=== PATIENT | female | born 1955 | race Caucasian/White ===

== ENCOUNTER 2021-08-15 12:25 | Emergency (ER) | payer OTHER ==
--- NOTE | 2021-08-15 14:03 | ED Physician Documentation ---
PD HPI HEAD INJURY - Stated complaint Stated Complaint: HEAD PAIN - Chief complaint Chief Complaint: Trauma Hd/Nk - History obtained from History obtained from: Patient - History of Present Illness Mechanism of head injury: Fell Where head injury occurred: Home (She states she slipped on a wet board and fell backwards striking the back of her head this morning at 10 AM. No loss of consciousness but felt confused off balanced and continued headache for 1 to 2 hours. Also pain in the right knee.) Timing - onset: How many hours ago (3), Today Location of injury: Back Associated symptoms: AMS (feels slow processing thoughts and conversation for the first 20-30 minutes. Improved now.), Nausea / vomiting. No: LOC, Neck pain, Paresthesias Symptoms worsen with: Palpation Contributing factors: No: Anticoagulated, Intoxicated Similar symptoms before: Has not had sx before Recently seen: Not recently seen Review of Systems Constitutional: denies: Fever, Chills Eyes: reports: Other (she viewed that her right pupil appeared more dilated than the left.). denies: Loss of vision, Decreased vision Nose: denies: Rhinorrhea / runny nose, Congestion Throat: denies: Sore throat Respiratory: denies: Cough GI: reports: Nausea. denies: Abdominal Pain, Vomiting, Diarrhea PD PAST MEDICAL HISTORY - Past Medical History Cardiovascular: None Respiratory: None Neuro: None Endocrine/Autoimmune: None - Allergies Allergies/Adverse Reactions: Allergies Allergy/AdvReac Type Severity Reaction Status Date / Time No Known Drug Allergies Allergy Verified 08/15/21 12:52 PD ED PE NORMAL - Vitals Vital signs reviewed: Yes - General General: Alert and oriented X 3, Well developed/nourished - HEENT HEENT: PERRL, EOMI, Other (Tender in the occiput area with some mild local swelling.) - Neck Neck: Supple, no meningeal sign, No bony TTP, Other (Mild muscular tenderness in the right paracervical area. No midline or bony tenderness.) - Cardiac Cardiac: RRR, No murmur - Respiratory Respiratory: Clear bilaterally - Abdomen Abdomen: Soft, Non tender - Derm Derm: Normal color, Warm and dry - Extremities Extremities: Other (right knee with some tenderness medial anterior. No laxity nor pain with cruciate/collateral stress testing. ) - Neuro Neuro: No motor deficit, No sensory deficit Results - Vitals Vitals: Vital Signs - 24 hr 08/15/21 15:52 Heart Rate 75 Respiratory 18 Rate Blood Pressure 167/91 H O2 Saturation 98 Oxygen O2 Source Room air - Rads (name of study) right knee Radiology: Prelim report reviewed (some arthritis, no fractues/acute process), See rad report head CT Radiology: Prelim report reviewed (no acute process), See rad report PD MEDICAL DECISION MAKING - ED course Complexity details: reviewed results, considered differential, d/w patient Departure - Departure Disposition: 01 Home, Self Care Clinical Impression: Mild concussion Qualifiers: Encounter type: initial encounter Loss of consciousness presence/duration: without LOC Qualified Code(s): S06.0X0A - Concussion without loss of consciousness, initial encounter Knee pain, acute Qualifiers: Laterality: right Qualified Code(s): M25.561 - Pain in right knee Condition: Stable Record reviewed to determine appropriate education?: Yes Instructions: ED Meniscal Injury Knee Poss, ED Concussion Follow-Up: Tony Roblero DO [Primary Care Provider] - Comments: Your head CT does not show any signs of bleeding or localized swelling. Your symptoms would certainly correlate with mild concussion. Light physical and cognitive activity for the next day or 2 until feeling better. Tylenol or ibuprofen if needed for pains. I would anticipate improvement over the next few days. Your knee x-ray shows a little arthritis in the knee but your symptoms are more suggestive of some inflammation or injury of the cartilage (meniscus). Use the hinged knee brace when up and around to support the knee and minimize range of motion for the next 1-2 weeks or so. You can use ice elevate and rest the knee as needed for swelling. Again Tylenol or ibuprofen if needed for pains. Follow-up with your primary care if not improved well over the next 1 to 2 weeks with the above interventions. Discharge Date/Time: 08/15/21 16:02
--- NOTE | 2021-08-15 15:12 | CT Report ---
PROCEDURE: HEAD WO INDICATIONS: Trauma, fall, concussion symptoms TECHNIQUE: Noncontrast 4.5 mm thick angled axial sections acquired from the foramen magnum to the vertex. For r adiation dose reduction, the following was used: automated exposure control, adjustment of mA and/or kV according to patient size. COMPARISON: None. FINDINGS: Image quality: Excellent. CSF spaces: Basal cisterns are patent. No extra-axial fluid collections. Ventricles are normal in size and shape. Brain: No midline shift. No intracranial masses or hemorrhage. Gonzales-white matter interface is norm al. Skull and face: Calvarium and visualized facial bones are intact, without suspicious lesions. Sinuses: Visualized sinuses and mastoids are clear. IMPRESSION: No acute intracranial abnormality. Reviewed by: Minh Mauro MD on 08/15/2021 3:11 PM PDT Approved by: Minh Mauro MD on 08/15/2021 3:11 PM PDT Station ID: [id number]
--- NOTE | 2021-08-15 15:25 | XRAY Report ---
PROCEDURE: Knee 3 View RT INDICATIONS: right knee pain and swelling after fall TECHNIQUE: 3 views of the right knee were acquired. COMPARISON: None. FINDINGS: Bones: No fractures or dislocations. There is tricompartmental mild osteophytosis, most prominent wi thin the lateral compartment. Mild joint space narrowing also demonstrated in the lateral compartment with mild subchondral sclerosis. No suspicious bony lesions. Soft tissues: There is a small joint effusion. No suspicious soft tissue calcifications. IMPRESSION: 1. No fracture or dislocation. 2. Mild osteoarthritic changes most prominent within the lateral compartment. 3. Small joint effusion. Reviewed by: Cristian Mix MD on 08/15/2021 3:23 PM PDT Approved by: Cristian Mix MD on 08/15/2021 3:23 PM PDT Station ID: [id number]
[2021-08-15 15:52] VITALS: BP 167/91
== END 2021-08-15 16:02 | disposition home or self-care (01) ==
LOC: ED 12:25
DX: S06.0X0A Concussion without loss of consciousness, initial encounter (principal); M25.561 Pain in right knee; W01.0XXA Fall on same level from slipping, tripping and stumbling without subsequent striking against object, initial encounter; Y92.009 Unspecified place in unspecified non-institutional (private) residence as the place of occurrence of the external cause
CPT/HCPCS: 99282; 99284

== ENCOUNTER 2022-10-09 08:39 | Emergency (ER) | payer MEDICARE, BC ==
--- NOTE | 2022-10-09 09:14 | ED Physician Documentation ---
PD HPI BACK PAIN - Stated complaint Stated Complaint: LT SIDE PX - Chief complaint Chief Complaint: Abd Pain - History obtained from History obtained from: Patient - History of Present Illness Timing - onset: How many days ago (few) Timing - duration: Days (few) Timing - details: Gradual onset, Still present Location: Mid, Lower, Left (radiating to left lower abdomen.) Quality: Pain, Aching Associated symptoms: No: Fever, Weakness, Numbness Worsened by: Movement, Twisting. No: Palpation Contributing factors: No: Lifting, Twisting, Trauma Similar symptoms before: Has not had sx before Recently seen: Not recently seen Review of Systems Constitutional: denies: Fever, Chills, Myalgias Nose: denies: Rhinorrhea / runny nose, Congestion Throat: denies: Sore throat Respiratory: denies: Cough GI: reports: Abdominal Pain. denies: Nausea, Vomiting, Constipation, Diarrhea Skin: denies: Rash, Lesions Musculoskeletal: reports: Back pain (left flank to lower back). denies: Extremity swelling Neurologic: denies: Focal weakness, Numbness PD PAST MEDICAL HISTORY - Past Medical History Cardiovascular: None Respiratory: None Neuro: None Endocrine/Autoimmune: None - Present Medications Home Medications: Ambulatory Orders Medication Instructions Recorded Confirmed hydrOXYzine PAMOATE [Vistaril] 25 mg PO Q6H PRN #100 cap 10/09/22 - Allergies Allergies/Adverse Reactions: Allergies Allergy/AdvReac Type Severity Reaction Status Date / Time aspirin Allergy Rash Verified 10/09/22 09:04 methylprednisolone Allergy Hallucinati Verified 10/09/22 09:05 [From Medrol] ons Penicillins Allergy Hives Verified 10/09/22 09:05 Sulfa (Sulfonamide Allergy Hives Verified 10/09/22 09:04 Antibiotics) sulfite Allergy Anaphylaxis Verified 10/09/22 09:05 - Social History Does the pt smoke?: No Smoking Status: Never smoker PD ED PE NORMAL - Vitals Vital signs reviewed: Yes - General General: Alert and oriented X 3, Well developed/nourished, Other (moderately uncomfortable appearing, worse with torsion rom of the back. ) - Neck Neck: Supple, no meningeal sign, No adenopathy - Cardiac Cardiac: RRR, No murmur - Respiratory Respiratory: Clear bilaterally - Abdomen Abdomen: Normal bowel sounds, Soft, Non distended, No organomegaly, Other (tender left mid abdomen laterally. Some tender left flank to percussion, not much to palpation. No rash nor sores. ) - Back Back: No spinal TTP - Derm Derm: Normal color, Warm and dry, No rash - Neuro Neuro: Alert and oriented X 3, No motor deficit, No sensory deficit, Normal speech Results - Vitals Vitals: Vital Signs - 24 hr 10/09/22 10/09/22 09:01 11:50 Temperature 36.3 C L Heart Rate 85 88 Respiratory 16 18 Rate Blood Pressure 170/77 H 146/91 H O2 Saturation 95 98 Oxygen O2 Source Room air - Labs Labs: Laboratory Tests 10/09/22 10/09/22 10/09/22 09:16 09:51 09:51 WBC 7.4 RBC 5.08 Hgb 14.2 Hct 45.3 MCV 89.2 MCH 28.0 MCHC 31.3 L RDW 12.2 Plt Count 282 MPV 11.2 H Neut # (Auto) 4.3 Lymph # (Auto) 2.3 [place] # (Auto) 0.6 Eos # (Auto) 0.1 Baso # (Auto) 0.1 Absolute Nucleated RBC 0.00 Nucleated RBC % 0.0 Sodium 138 Potassium 4.2 Chloride 103 Carbon Dioxide 26 Anion Gap 9.0 BUN 32 H Creatinine 0.9 Estimated GFR (MDRD) 63 L Glucose 108 H Calcium 9.6 Total Bilirubin 0.9 AST 18 ALT 28 Alkaline Phosphatase 77 Total Protein 7.1 Albumin 3.8 Globulin 3.3 Albumin/Globulin Ratio 1.2 Lipase 37 Urine Color YELLOW Urine Clarity CLEAR Urine pH 6.0 Ur Specific [place] 1.015 Urine Protein NEGATIVE Urine Glucose (UA) NEGATIVE Urine Ketones NEGATIVE Urine Occult Blood NEGATIVE Urine Nitrite NEGATIVE Urine Bilirubin NEGATIVE Urine Urobilinogen 0.2 (NORMAL) Ur Leukocyte Esterase NEGATIVE Ur Microscopic Review NOT INDICATED Urine Culture Comments NOT INDICATED - Rads (name of study) abd/pelvic cT Radiology: Prelim report reviewed (no ureteral stones nor hydronephrosis. normal appendix. ), EMP read contemporaneously (no abnormal to explain the pain. ), See rad report PD MEDICAL DECISION MAKING - ED course Complexity details: reviewed results, re-evaluated patient (labbs and CT normal. presume then myofascial/muscular pain or intestinal such as iBS. ), considered differential, d/w patient Departure - Departure Disposition: 01 Home, Self Care Clinical Impression: Left sided abdominal pain Condition: Stable Record reviewed to determine appropriate education?: Yes Instructions: ED Abdominal Pain Female Non-Specific Abdominal Pain Follow-Up: Tony Roblero DO [Primary Care Provider] - Prescriptions: hydrOXYzine PAMOATE [Vistaril] 25 mg PO Q6H PRN #100 cap PRN Reason: Itching Comments: Your blood count and blood tests associated with liver and pancreas as well as electrolytes and kidney function are normal. Your urinalysis did not show any signs of infection. Your CT scan does not show a cause for the pain. With that results, considerations would then be things that would not show such as musculoskeletal pain. There could be some muscular pain causing this such as muscle strain. Along with that idea would go with the position allergy and pain with movement etc. Other consideration could be intestinal pain with some stretching or irritation of the intestines (irritable bowel). For that I would suggest mild stool softener such as senna or psyllium or such once or twice daily for the next week or 2. Use Tylenol if needed for pains 4 times daily. Add Vistaril if needed for itching related to medication. I did send a prescription for the Vistaril you have taken in the past to [facility] in [place]. Follow-up with your primary care and corrections caseworker as needed over the next several days to a week if not improving well. Consider physical modalities such as chiropractic or massage as well. Discharge Date/Time: 10/09/22 11:52
[2022-10-09 09:51] LABS: BILIRUBIN,URINE NEGATIVE (NEGATIVE); GLUCOSE, URINE (UA) NEGATIVE (NEGATIVE); KETONES,URINE (UA) NEGATIVE (NEGATIVE); LEUKOCYTE ESTERASE, URINE NEGATIVE (NEGATIVE); NITRITE,URINE NEGATIVE (NEGATIVE); OCCULT BLOOD,URINE NEGATIVE (NEGATIVE); PROTEIN,URINE NEGATIVE (NEGATIVE); UROBILINOGEN,URINE 0.2 (NORMAL) E.U./dL (NORMAL)
[2022-10-09 09:56] LABS: CLARITY,URINE CLEAR (CLEAR)
[2022-10-09 09:57] LABS: BASOPHILS # (AUTO) 0.1 10^3/uL (0.0-0.1); BASOPHILS % (AUTO) 0.8 %; EOSINOPHILS # (AUTO) 0.1 10^3/uL (0.0-0.7); EOSINOPHILS % (AUTO) 1.5 %; HCT - HEMATOCRIT 45.3 % (37.0-47.0); HGB - HEMOGLOBIN 14.2 g/dL (12.0-16.0); LYMPHOCYTES # (AUTO) 2.3 10^3/uL (1.5-3.5); LYMPHOCYTES % (AUTO) 30.8 %; MEAN CORPUSCULAR HGB CONC 31.3 g/dL (32.0-36.0); MEAN CORPUSCULAR VOLUME 89.2 fL (81.0-99.0); MEAN PLATELET VOLUME 11.2 fL (7.9-10.8); MONOCYTES # (AUTO) 0.6 10^3/uL (0.0-1.0); MONOCYTES % (AUTO) 8.4 %; NEUTROPHILS # (AUTO) 4.3 10^3/uL (1.5-6.6); NEUTROPHILS % (AUTO) 58.4 %; PLT - PLATELET COUNT 282 10^3/uL (130-450); RED BLOOD COUNT 5.08 10^6/uL (4.20-5.40); RED CELL DISTRIBUTION WIDTH 12.2 % (12.0-15.0); WHITE BLOOD COUNT 7.4 x10^3/uL (4.8-10.8)
[2022-10-09 10:09] LABS: ALBUMIN 3.8 g/dL (3.2-5.5); ALBUMIN/GLOBULIN RATIO 1.2 (1.0-2.2); BILIRUBIN,TOTAL 0.9 mg/dL (0.2-1.0); CALCIUM 9.6 mg/dL (8.5-10.3); CREATININE 0.9 mg/dL (0.4-1.0); POTASSIUM 4.2 mmol/L (3.5-5.0); TOTAL PROTEIN 7.1 g/dL (6.7-8.2)
--- NOTE | 2022-10-09 10:25 | CT Report ---
PROCEDURE: ABDOMEN/PELVIS WO INDICATIONS: left flank/abd pain for 4 days TECHNIQUE: Noncontrast 5 mm thick sections acquired from the diaphragms to the symphysis. 5 mm coronal and sagi ttal reformats were then performed. For radiation dose reduction, the following was used: automated exposure control, adjustment of mA and/or kV according to patient size. COMPARISON: None. FINDINGS: Image quality: Excellent. ABDOMEN: Lung bases: Lung bases are clear. Heart size is normal. Solid organs: Liver and spleen are normal in size. Gallbladder is contracted Pancreas is normal in contours. No adrenal nodules. Kidneys are normal in size, without hydronephrosis or nephrolithiasi s. Peritoneum and bowel: Unenhanced bowel loops demonstrate normal wall thickness and caliber. Normal appendix. No free fluid or air. Nodes and vessels: No retroperitoneal or mesenteric adenopathy by size criteria. Aorta and inferior vena cava are normal in caliber. Miscellaneous: No ventral hernias. PELVIS: Genitourinary: Bladder wall thickness is normal. Miscellaneous: No inguinal hernias or adenopathy. Bones: No suspicious bony lesions. No vertebral body compression fractures. IMPRESSION: 1. No evidence of urinary tract calcification, nor obstruction. 2. Normal appendix. Reviewed by: Sophie Horne MD on 10/09/2022 10:24 AM [facility] Approved by: Sophie Horne MD on 10/09/2022 10:24 AM [facility] Station ID: [id number]
[2022-10-09 11:51] VITALS: BP 146/91
== END 2022-10-09 11:52 | disposition home or self-care (01) ==
LOC: ED 08:39
DX: R10.9 Unspecified abdominal pain (principal)
CPT/HCPCS: 36415; 80053; 81001; 81003; 83690; 85025; 87086; 99282; 99284

== ENCOUNTER 2024-07-23 16:26 | Outpatient (CLI) | payer MEDICARE, BC ==
[2024-07-23 16:53] LABS: BASOPHILS % (AUTO) 0.5 %; EOSINOPHILS # (AUTO) 0.2 10^3/uL (0.0-0.7); EOSINOPHILS % (AUTO) 2.1 %; HCT - HEMATOCRIT 43.4 % (37.0-47.0); HGB - HEMOGLOBIN 13.8 g/dL (12.0-16.0); LYMPHOCYTES # (AUTO) 2.3 10^3/uL (1.5-3.5); LYMPHOCYTES % (AUTO) 26.9 %; MEAN CORPUSCULAR HEMOGLOBIN 27.9 pg (27.0-31.0); MEAN CORPUSCULAR HGB CONC 31.8 g/dL (32.0-36.0); MEAN CORPUSCULAR VOLUME 87.9 fL (81.0-99.0); MEAN PLATELET VOLUME 11.3 fL (7.9-10.8); MONOCYTES # (AUTO) 0.6 10^3/uL (0.0-1.0); MONOCYTES % (AUTO) 7.1 %; NEUTROPHILS # (AUTO) 5.4 10^3/uL (1.5-6.6); NEUTROPHILS % (AUTO) 63.2 %; PLT - PLATELET COUNT 272 10^3/uL (130-450); RED BLOOD COUNT 4.94 10^6/uL (4.20-5.40); RED CELL DISTRIBUTION WIDTH 12.3 % (12.0-15.0); WHITE BLOOD COUNT 8.5 x10^3/uL (4.8-10.8)
[2024-07-23 17:12] LABS: ALBUMIN 4.2 g/dL (3.2-5.5); ALBUMIN/GLOBULIN RATIO 1.6 (1.0-2.2); ALKALINE PHOSPHATASE 76 IU/L (42-121); ALT ALANINE AMINOTRANSFERASE 26 IU/L (10-60); AST ASPARTATE AMINOTRANSFERASE 17 IU/L (10-42); BILIRUBIN,TOTAL 0.5 mg/dL (0.2-1.0); BUN - BLOOD UREA NITROGEN 30 mg/dL (6-20); CALCIUM 9.7 mg/dL (8.5-10.3); CARBON DIOXIDE - CO2 24 mmol/L (21-32); CHLORIDE 107 mmol/L (101-111); CREATININE 0.8 mg/dL (0.6-1.3); CRP - C-REACTIVE PROTEIN < 0.5 mg/dL (<0.5); GFR - MDRD 72 (>89); GLUCOSE 106 mg/dL (74-104); POTASSIUM 4.2 mmol/L (3.5-4.5); SODIUM 138 mmol/L (135-145); TOTAL PROTEIN 6.8 g/dL (6.4-8.9)
[2024-07-23 21:43] LABS: ESTIMATED AVERAGE GLUCOSE 108 mg/dL (70-100); HEMOGLOBIN A1c% 5.4 % (4.27-6.07)
== END 2024-07-23 16:27 | disposition home or self-care (01) ==
LOC: LAB 16:26
PROVIDERS: ATTEND Naturopath
DX: L60.8 Other nail disorders (principal); R10.11 Right upper quadrant pain; R51.9 Headache, unspecified; E16.2 Hypoglycemia, unspecified
CPT/HCPCS: 36415; 80053; 81599; 82607; 82746; 83036; 85025; 86140